=== PATIENT | male | born 1980 | race Caucasian/White ===

== ENCOUNTER 2023-08-29 00:49 | Inpatient (IN) | payer MEDICAID ==
[~2023-08-29] VITALS: Ht 182.9 cm; Wt 75.1 kg
[~2023-08-29 00:49] MED LIST: ACYC200C; BAC15O TP; CLIN-26 PO; INSU100V36; INSU100V9; SYRI1DIS90
[2023-08-29] MEDS ORDERED: dextrose 5%-normal saline 1,000 ML IV ONE (01:00)
[2023-08-29 01:18] LABS: BASOPHILS # (AUTO) 0.1 X10'3 (0-0.2); BASOPHILS % (AUTO) 0.7 % (0-1); EOSINOPHILS # (AUTO) 0.1 X10'3 (0-0.9); EOSINOPHILS % (AUTO) 1.3 % (0-6); HEMATOCRIT 40.9 % (42.0-52.0); HEMOGLOBIN 13.7 g/dl (14.0-17.9); LYMPHOCYTES % (AUTO) 20.1 % (21-51); MEAN CORPUSCULAR HEMOGLOBIN 29.3 PG (27.0-31.0); MEAN CORPUSCULAR HGB CONC 33.5 g/dL (33.0-36.5); MEAN CORPUSCULAR VOLUME 87.5 FL (78-98); MEAN PLATELET VOLUME 6.7 FL (7.4-10.4); MONOCYTES # (AUTO) 0.9 X10'3 (0-0.9); NEUTROPHILS # (AUTO) 6.8 X10'3 (1.8-7.7); NEUTROPHILS % (AUTO) 68.9 % (42-75); PLATELET COUNT 326 X10'3 (140-440); RED BLOOD COUNT 4.68 X10'6 (4.70-6.10); RED CELL DISTRIBUTION WIDTH 13.1 % (11.5-14.5); WHITE BLOOD COUNT 9.8 X10'3 (4.5-11.0)
[2023-08-29 01:26] LABS: ALANINE AMINOTRANSFERASE 30 U/L (12-78); ALBUMIN/GLOBULIN RATIO 1.3 (1.1-1.5); ALKALINE PHOSPHATASE 67 IU/L (46-116); ANION GAP 13 (8-16); ASPARTATE AMINO TRANSFERASE 35 U/L (10-37); BILIRUBIN,TOTAL 0.2 MG/DL (0.1-1.0); BLOOD UREA NITROGEN 20 MG/DL (7-18); BUN/CREATININE RATIO 13.2 (10.0-20.0); CHLORIDE 102 MMOL/L (99-107); CREATININE 1.51 MG/DL (0.60-1.10); GLUCOSE 160 MG/DL (70-104); POTASSIUM 4.2 MMOL/L (3.5-5.1); SODIUM 139 MMOL/L (135-145); TOTAL CARBON DIOXIDE 24.4 MMOL/L (24-32); eCRCL 68 ML/MIN; eGFR 51 ML/MIN
[2023-08-29] MEDS: dextrose 5%-normal saline 1,000 ML IV SCH ×4 (01:29→13:15)
[2023-08-29] MEDS ORDERED: diphenhydrAMINE 50 mg/ml inj IM ONE ×2 (01:30→04:35)
[2023-08-29] MEDS ORDERED: ringers solution, lacted 1,000 ML IV ONE (01:30)
[2023-08-29] MEDS ORDERED: haloperidol lactate 5mg/ml inj IM ONE ×2 (01:30→10:30)
[2023-08-29 01:36] LABS: ETHANOL < 10 MG/DL (<10); THYROID STIMULATING HORMONE 2.28 ulU/ml (0.34-4.50)
[2023-08-29 02:24] LABS: BILIRUBIN,URINE NEGATIVE (Neg); CLARITY,URINE SLIGHTLY CLOUDY (Clear); COLOR,URINE YELLOW (Yellow); GLUCOSE, URINE 100 mg/dl (Neg); KETONES,URINE TRACE mg/dl (Neg); LEUKOCYTE ESTERASE ,URINE NEGATIVE (Neg); NITRITES, URINE NEGATIVE (Neg); OCCULT BLOOD,URINE NEGATIVE (Neg); PROTEIN,URINE 30 mg/dl (Neg); UROBILINOGEN,URINE 0.2 E.U/dL (0.2-1.0)
[2023-08-29 02:29] LABS: UA COLLECTION TYPE CLN CATCH MIDSTREAM
[2023-08-29 02:30] LABS: CAL OXALATE CRYSTALS 4+ /HPF (NEGATIVE); MUCUS STRANDS FEW /LPF (Neg); SQUAMOUS EPITHELIAL CELL,UR FEW /LPF (FEW)
[2023-08-29 02:31] LABS: BACTERIA,URINE 1+ /HPF (Neg); RBC,URINE 0-2 /HPF (0-2); WBC,URINE 0-4 /HPF (0-4)
[2023-08-29] MEDS ORDERED: dextrose 5%-1/2 normal saline 1,000 ML IV SCH ×2 (02:40→04:10)
[2023-08-29 02:43] LABS: URINE AMPHETAMINE SCREEN POSITIVE (Neg); URINE BARBITUATE SCREEN NEGATIVE (Neg); URINE BENZODIAZEPINES SCREEN POSITIVE (Neg); URINE CANNABINOID SCREEN POSITIVE (Neg); URINE COCAINE SCREEN NEGATIVE (Neg); URINE METHADONE SCREEN NEGATIVE (Neg); URINE OPIATE SCREEN NEGATIVE (Neg); URINE PHENCYCLIDINE SCREEN NEGATIVE (Neg)
[2023-08-29] MEDS ORDERED: CefTRIAXone 2gm/D5W 50ml BAG 50 ML IV ONE (02:45)
[2023-08-29] MEDS ORDERED: vancomycin/NS 1 GM ADD-VANTAGE 250 ML IV ONE (02:50)
[2023-08-29] MEDS ORDERED: piperacillin/tazo 3.375gm/50ml 50 ML IV SCH (02:55)
[2023-08-29] MEDS ORDERED: diphenhydrAMINE 50 mg/ml inj IV PRN (04:10)
[2023-08-29] MEDS ORDERED: ipratropium/albuterol 3ml nebule NEB PRN (04:10)
[2023-08-29] MEDS ORDERED: normal saline 1000ml 1,000 ML IV SCH (04:10)
[2023-08-29] MEDS ORDERED: magnesium hydroxide 30ml (MOM) UD suspension PO PRN (04:10)
[2023-08-29] MEDS ORDERED: ondansetron/PF 4mg/2ml inj IV PRN (04:10)
[2023-08-29] MEDS ORDERED: morphine 2 MG/ML inj. syringe IV PRN (04:10)
[2023-08-29] MEDS ORDERED: HYDROcodone/acetaminophen 5mg/325mg tablet PO PRN (04:10)
[2023-08-29] MEDS ORDERED: ondansetron 4mg rapidly disintigrating tab PO PRN (04:10)
[2023-08-29] MEDS ORDERED: diphenhydrAMINE 25mg capsule PO PRN (04:10)
[2023-08-29] MEDS ORDERED: metoclopramide 5 mg/ml inj IV PRN (04:10)
[2023-08-29] MEDS ORDERED: bisacodyl 10mg suppository rectal RC PRN (04:10)
[2023-08-29] MEDS ORDERED: acetaminophen 325mg tablet PO PRN ×2 (04:10)
[2023-08-29] MEDS ORDERED: mag hydrox/Alum hydrox/simeth 30ml oral suspension PO PRN (04:10)
[2023-08-29] MEDS ORDERED: glucagon, human recombinant 1mg kit SUBCUT PRN ×2 (04:15→15:15)
[2023-08-29] MEDS ORDERED: insulin Lispro (HumaLOG) vial - multi-dose SQ SCH (04:15)
[2023-08-29] MEDS ORDERED: MESSAGE TO PHARMACY PO ONE ×2 (04:15)
[2023-08-29] MEDS ORDERED: dextrose 50%-water 50ml dispensing syringe IV PRN ×4 (04:15→15:15)
[2023-08-29] MEDS ORDERED: DEXTROSE 15 GM of carb/4 tabs (each vial/BOTTLE has 4 tablets) PO PRN ×4 (04:15→15:15)
[2023-08-29 04:34] LABS: APTT 24 SECONDS (22-32)
[2023-08-29 04:35] LABS: HEMOGLOBIN A1C 8.7 % (4.5-6.2)
[2023-08-29] MEDS ORDERED: ziprasidone IM 20mg inj **IM only IM ONE (04:35)
[2023-08-29 04:39] LABS: MAGNESIUM 2.3 MG/DL (1.5-2.4); PHOSPHORUS 4.8 MG/DL (2.3-4.5); PRO BRAIN NATRIURETIC PEPTIDE < 30 PG/ML (0-125)
[2023-08-29] MEDS ORDERED: INSU100I39 SQ (04:56)
[2023-08-29] MEDS ORDERED: INSU100I31 SQ (04:56)
[2023-08-29] MEDS ORDERED: SULF1TAB45 PO (04:56)
[2023-08-29] MEDS: normal saline 1000ml 1,000 ML IV SCH ×3 (04:59→23:13)
[2023-08-29 05:19] LABS: INR 0.9 INR
[2023-08-29 05:27] VITALS: PULSE 70; RESP 15; O2SAT 97
[2023-08-29 05:36] LABS: OSMOLALITY 304 MOSM/K (280-300)
[2023-08-29 05:46] LABS: CREATINE KINASE 599 U/L (39-308); LIPASE 17 U/L (16-77)
[2023-08-29] MEDS: levetiracetam inj 500 MG in normal saline 100ml IV soln 100 ML IV SCH ×2 (07:09→20:06)
[2023-08-29] MEDS: pantoprazole 40MG/NS 100ML BAG 100 ML IV SCH (07:33)
--- NOTE | 2023-08-29 07:48 | NUR ---
Patient was very agitated, restless, yelling at us. Called resident doctor Dr. Carreon, received order for Ativan 0.5 mg IV x 1
[2023-08-29] MEDS ORDERED: LORazepam 2 mg/ml vial IV ONE (07:50)
[2023-08-29] MEDS: piperacillin/tazo 3.375gm/50ml 50 ML IV SCH ×2 (07:52→15:22)
[2023-08-29] MEDS: nicotine 21mg patch - 24 hr TD SCH (08:00)
[2023-08-29] MEDS ORDERED: vancomycin/NS 1 GM ADD-VANTAGE 250 ML IV SCH (08:00)
[2023-08-29] MEDS ORDERED: docusate sod 100mg capsule PO SCH (08:00)
[2023-08-29] MEDS: heparin, porcine 5000 units/ml vial SQ SCH ×2 (08:07→20:07)
--- NOTE | 2023-08-29 08:47 | NUR ---
still very agitated even with 0.5 mg IV Ativan given earlier
[2023-08-29] MEDS: LORazepam 2 mg/ml vial IV PRN ×2 (08:53→15:19)
[2023-08-29] MEDS ORDERED: haloperidol decanoate***LONG-ACTING*** 100mg/ml **IM only** inj. IM ONE (10:10)
--- NOTE | 2023-08-29 10:32 | NUR ---
Dr. Carreon (resident doctor) ordered Haloperidol 100 mg IM which I felt too much dose for this patient as this was not the normal dose of Haloperidol. I called pharmacist about this too and he was not very sure. ER doctor Dr. Coy was consulted on this, he gave me verbal order to change the order to Haloperidol 10 mg IM instead
[2023-08-29 10:33] LABS: CREATINE KINASE 1890 U/L (39-308)
--- NOTE | 2023-08-29 11:08 | NUR ---
Pt agitated and restless, gave 10 mg haldol per Olf's orded
[2023-08-29] MEDS ORDERED: haloperidol 5mg tablet PO PRN (12:25)
[2023-08-29] MEDS ORDERED: haloperidol lactate 5mg/ml inj IM PRN (12:25)
--- NOTE | 2023-08-29 14:30 | NUR ---
Patient remains disoriented, agitated on and off, not following command. Patient vey uncooperative. Unable to offer solid food or anything PO due to risk for aspiration. Patient has IVF running for hydration
--- NOTE | 2023-08-29 15:10 | NUR ---
Per resident doctor Dr. Carreon, we should keep the NS @ 100 ml/hr ordered and d/c the D5 NS ordered so we can keep the patient hydrated. I was advised to keep NS and treat hypoglycemia if needed
[2023-08-29] MEDS ORDERED: VANCOMYCIN LEVEL IV ONE (15:30)
--- NOTE | 2023-08-29 17:21 | NUR ---
Pt's blood sugar 60, gave 50% dextrose 25mL per protocol. Pt agitated, incoherent.
[2023-08-29] MEDS: vancomycin/NS 1 GM ADD-VANTAGE 250 ML IV SCH (17:31)
--- NOTE | 2023-08-29 17:44 | NUR ---
BS after 15 mins 87-per protocol will not administer dextrose
--- NOTE | 2023-08-29 18:12 | NUR ---
removed bilat lower restraints to allow pt to turn on side. Will reevaluate for increased agitation.
[2023-08-29] MEDS ORDERED: temazepam 15mg capsule PO PRN (21:00)
[2023-08-29] MEDS: dextrose 5%-1/2 normal saline 1,000 ML IV SCH (21:18)
--- NOTE | 2023-08-29 22:35 | NUR ---
pt placed on hospital bed for comfort. wrist restaints released, trialing to determine if restraints can be DC'd. pt is resting comfortably on side, NAD observed, RR even & unlabored, VSS.
[2023-08-30] MEDS: piperacillin/tazo 3.375gm/50ml 50 ML IV SCH ×3 (00:02→16:00)
--- NOTE | 2023-08-30 00:17 | NUR ---
pt remains out of restraints at this time. resting comfortably, RR even & unlabored, VSS, NAD observed.
--- NOTE | 2023-08-30 02:42 | NUR ---
pt remains out of restraints at this time. resting comfortably, RR even & unlabored, VSS, NAD observed.
--- NOTE | 2023-08-30 03:15 | NUR ---
pt sat up & attempted to climb out of bed, was able to be redirected by this RN and laid back down in bed. pt let this RN take BG and rewrap coban on IV sites. pt now resting comfortably, NAD observed, RR even & unlabored.
[2023-08-30 04:25] VITALS: PULSE 88; RESP 18; O2SAT 98
[2023-08-30] MEDS: vancomycin/NS 1 GM ADD-VANTAGE 250 ML IV SCH ×2 (04:36→16:59)
[2023-08-30] MEDS: dextrose 5%-1/2 normal saline 1,000 ML IV SCH (07:05)
[2023-08-30] MEDS: normal saline 1000ml 1,000 ML IV SCH ×3 (07:15→19:23)
[2023-08-30 07:41] LABS: BASOPHILS # (AUTO) 0.1 X10'3 (0-0.2); EOSINOPHILS # (AUTO) 0.2 X10'3 (0-0.9); HEMATOCRIT 43.6 % (42.0-52.0); HEMOGLOBIN 14.5 g/dl (14.0-17.9); LYMPHOCYTES % (AUTO) 27.1 % (21-51); MEAN CORPUSCULAR HEMOGLOBIN 29.1 PG (27.0-31.0); MEAN CORPUSCULAR HGB CONC 33.3 g/dL (33.0-36.5); MEAN CORPUSCULAR VOLUME 87.5 FL (78-98); MEAN PLATELET VOLUME 6.9 FL (7.4-10.4); MONOCYTES # (AUTO) 0.5 X10'3 (0-0.9); MONOCYTES % (AUTO) 7.2 % (2-12); NEUTROPHILS # (AUTO) 4.5 X10'3 (1.8-7.7); NEUTROPHILS % (AUTO) 61.7 % (42-75); PLATELET COUNT 294 X10'3 (140-440); RED BLOOD COUNT 4.99 X10'6 (4.70-6.10); RED CELL DISTRIBUTION WIDTH 13.2 % (11.5-14.5); WHITE BLOOD COUNT 7.3 X10'3 (4.5-11.0)
[2023-08-30 08:07] LABS: ALANINE AMINOTRANSFERASE 39 U/L (12-78); ALBUMIN 3.5 G/DL (3.4-5.0); ALBUMIN/GLOBULIN RATIO 1.1 (1.1-1.5); ALKALINE PHOSPHATASE 65 IU/L (46-116); ANION GAP 7 (8-16); ASPARTATE AMINO TRANSFERASE 68 U/L (10-37); BILIRUBIN,TOTAL 0.4 MG/DL (0.1-1.0); BLOOD UREA NITROGEN 8 MG/DL (7-18); BUN/CREATININE RATIO 7.4 (10.0-20.0); CALCIUM 8.5 MG/DL (8.5-10.1); CHLORIDE 105 MMOL/L (99-107); CHOL/HDL RATIO 3.9 (0.00-4.99); CHOLESTEROL 183 MG/DL (0-200); CREATININE 1.08 MG/DL (0.60-1.10); GLUCOSE 74 MG/DL (70-104); HDL CHOLESTEROL 47 MG/DL (35-60); LDL CHOLESTEROL 115 MG/DL (50-100); POTASSIUM 3.6 MMOL/L (3.5-5.1); SODIUM 140 MMOL/L (135-145); TOTAL CARBON DIOXIDE 28.5 MMOL/L (24-32); TOTAL PROTEIN 6.6 G/DL (6.4-8.2); TRIGLYCERIDES 90 MG/DL (20-135); eCRCL 95 ML/MIN; eGFR 75 ML/MIN
[2023-08-30 08:16] LABS: CREATINE KINASE 1422 U/L (39-308)
[2023-08-30] MEDS: levetiracetam inj 500 MG in normal saline 100ml IV soln 100 ML IV SCH ×2 (08:55→21:15)
[2023-08-30] MEDS: nicotine 21mg patch - 24 hr TD SCH (09:14)
[2023-08-30] MEDS: heparin, porcine 5000 units/ml vial SQ SCH ×2 (09:26→19:34)
[2023-08-30] MEDS: pantoprazole 40MG/NS 100ML BAG 100 ML IV SCH (09:26)
[2023-08-30] MEDS ORDERED: VANCOMYCIN LEVEL IV ONE (15:30)
--- NOTE | 2023-08-30 18:09 | NUR ---
CALLED PCU TO GIVE REPORT. RECEIVING NURSE UNABLE TO TAKE REPORT AT THIS TIME.
--- NOTE | 2023-08-30 18:40 | NUR ---
Received report from ER nurse. Patient to follow shortly.
--- NOTE | 2023-08-30 19:00 | NUR ---
Patient arrived to floor from Er via hospital bed. Alert and oriented , but fatigued. VS initiated.
[2023-08-30 19:10] VITALS: BP 136/75; PULSE 81; RESP 16; TEMP 98.4; O2SAT 98
[2023-08-30 19:15] VITALS: RESP 16; O2SAT 98
[2023-08-30 22:00] VITALS: BP 144/79; PULSE 83; RESP 18; TEMP 98.1; O2SAT 91
[2023-08-31] MEDS: piperacillin/tazo 3.375gm/50ml 50 ML IV SCH ×2 (00:15→10:05)
[2023-08-31] MEDS: normal saline 1000ml 1,000 ML IV SCH (04:32)
[2023-08-31] MEDS: vancomycin/NS 1 GM ADD-VANTAGE 250 ML IV SCH (04:33)
--- NOTE | 2023-08-31 06:30 | NUR ---
Problems reprioritized. Patient report given, questions answered & plan of care reviewed with Karen DICKINSON and nursing coordinator Brisa.
--- NOTE | 2023-08-31 06:34 | NUR ---
Patient in room PCU 3015B. I have received report from TEENA Lee and had the opportunity to ask questions and assume patient care.
[2023-08-31 07:00] VITALS: BP 107/59; PULSE 58; RESP 19; TEMP 97.6; O2SAT 100
[2023-08-31 08:00] VITALS: RESP 16; O2SAT 100
[2023-08-31] MEDS: nicotine 21mg patch - 24 hr TD SCH (08:00)
[2023-08-31] MEDS: pantoprazole 40MG/NS 100ML BAG 100 ML IV SCH (08:02)
[2023-08-31] MEDS: levetiracetam inj 500 MG in normal saline 100ml IV soln 100 ML IV SCH (08:02)
[2023-08-31] MEDS: heparin, porcine 5000 units/ml vial SQ SCH (08:03)
[2023-08-31 09:12] LABS: BASOPHILS # (AUTO) 0.1 X10'3 (0-0.2); EOSINOPHILS # (AUTO) 0.1 X10'3 (0-0.9); EOSINOPHILS % (AUTO) 2.3 % (0-6); HEMATOCRIT 39.2 % (42.0-52.0); HEMOGLOBIN 13.4 g/dl (14.0-17.9); LYMPHOCYTES # (AUTO) 1.6 X10'3 (1.1-4.8); LYMPHOCYTES % (AUTO) 23.9 % (21-51); MEAN CORPUSCULAR HEMOGLOBIN 29.6 PG (27.0-31.0); MEAN CORPUSCULAR HGB CONC 34.2 g/dL (33.0-36.5); MEAN CORPUSCULAR VOLUME 86.5 FL (78-98); MONOCYTES # (AUTO) 0.7 X10'3 (0-0.9); NEUTROPHILS # (AUTO) 4.1 X10'3 (1.8-7.7); NEUTROPHILS % (AUTO) 62.8 % (42-75); PLATELET COUNT 279 X10'3 (140-440); RED BLOOD COUNT 4.53 X10'6 (4.70-6.10); RED CELL DISTRIBUTION WIDTH 12.9 % (11.5-14.5); WHITE BLOOD COUNT 6.6 X10'3 (4.5-11.0)
[2023-08-31 09:46] LABS: ALANINE AMINOTRANSFERASE 31 U/L (12-78); ALBUMIN 3.1 G/DL (3.4-5.0); ALKALINE PHOSPHATASE 70 IU/L (46-116); ANION GAP 6 (8-16); ASPARTATE AMINO TRANSFERASE 42 U/L (10-37); BILIRUBIN,TOTAL 0.4 MG/DL (0.1-1.0); BLOOD UREA NITROGEN 8 MG/DL (7-18); BUN/CREATININE RATIO 7.7 (10.0-20.0); CALCIUM 8.4 MG/DL (8.5-10.1); CHLORIDE 101 MMOL/L (99-107); CREATININE 1.04 MG/DL (0.60-1.10); GLUCOSE 223 MG/DL (70-104); POTASSIUM 4.4 MMOL/L (3.5-5.1); SODIUM 135 MMOL/L (135-145); TOTAL CARBON DIOXIDE 28.2 MMOL/L (24-32); TOTAL PROTEIN 6.2 G/DL (6.4-8.2); eCRCL 98 ML/MIN; eGFR 78 ML/MIN
--- NOTE | 2023-08-31 10:31 | NUR ---
Received order for consult. Met with patient in regards to substance use and to see if patient was interested in resources for treatment options. Patient is interested in outpatient resources. I discussed with patient about medication to help with cravings. I gave patient a list of resources, a card for [facility] and my card to call me with any questions.
--- NOTE | 2023-08-31 11:49 | NUR ---
PATIENT LEFT AMA, DR ROGERS, IV, TELE AND [employer]COS[employer] CATHETER REMOVED, PATIENT TOO AGITATED FOR EDUCATION ON BENEFITS AND RISK OF LEAVING VS STAYING FOR TREATMENT, CHARGE NOTIFIED, ALL BELONGINGS SENT WITH PATIENT, PATIENT WALKED OUT ON OWN TO LOBBY WHERE FAMILY WILL TAKE PATIENT HOME
--- NOTE | 2023-08-31 15:15 | NUR ---
Student documentation: I have reviewed and agree with all interventions, assessments performed and documented by YUMIKO DEAL.
[2023-08-31] MEDS ORDERED: VANCOMYCIN 1,500MG in normal saline IV soln 300 ML IV SCH (16:00)
[2023-09-02] MEDS ORDERED: VANCOMYCIN LEVEL IV ONE (03:30)
== END 2023-08-31 11:49 | disposition left against medical advice (07) | DRG 812 ==
LOC: ER 00:50 → ED HOLD 04:15 → EDBEDREQ 06:52 → PCU 3S 08-30 19:00
PROVIDERS: ADMIT Family Medicine; ATTEND Internal Medicine
DX: T50.901A Poisoning by unspecified drugs, medicaments and biological substances, accidental (unintentional), initial encounter (principal); E10.649 Type 1 diabetes mellitus with hypoglycemia without coma; N17.9 Acute kidney failure, unspecified; E10.22 Type 1 diabetes mellitus with diabetic chronic kidney disease; R56.9 Unspecified convulsions; I95.9 Hypotension, unspecified; E10.65 Type 1 diabetes mellitus with hyperglycemia; E86.1 Hypovolemia; E87.6 Hypokalemia; F11.129 Opioid abuse with intoxication, unspecified; F12.129 Cannabis abuse with intoxication, unspecified; R82.4 Acetonuria; F15.129 Other stimulant abuse with intoxication, unspecified; X58.XXXA Exposure to other specified factors, initial encounter; N18.9 Chronic kidney disease, unspecified; Z79.4 Long term (current) use of insulin; Z53.29 Procedure and treatment not carried out because of patient's decision for other reasons; Z86.14 Personal history of Methicillin resistant Staphylococcus aureus infection; Z87.891 Personal history of nicotine dependence; Z91.199 Patient's noncompliance with other medical treatment and regimen due to unspecified reason
CPT/HCPCS: 36415; 70450; 71045; 80053; 80061; 80202; 80305; 80320; 81001; 82550; 82948; 83036; 83605; 83690; 83735; 83880; 83930; 84100; 84145; 84443; 84484; 85025; 85379; 85610; 85651; 85730; 87040; 87081; 94760; 96365; 96367; 99285; C1758; C9113; G0378; J1200; J1630; J1644; J1953; J2060; J2543; J3370; J3486; J3490; J7030; J7042; J7120

== ENCOUNTER 2023-12-19 01:46 | Emergency (ER) | payer MEDICAID ==
[~2023-12-19] VITALS: Ht 180.3 cm; Wt 72.7 kg
[~2023-12-19 01:46] MED LIST changes: -ACYC200C; -BAC15O TP; -CLIN-26 PO; +INSU100I31 SQ; +INSU100I39 SQ; -INSU100V36; -INSU100V9; +SULF1TAB45 PO; -SYRI1DIS90
[2023-12-19 01:56] VITALS: BP 124/80; PULSE 85; RESP 16; TEMP 98; O2SAT 95
[2023-12-19] MEDS ORDERED: LANTUS SUBCUT (01:58)
== END 2023-12-19 02:04 | disposition home or self-care (01) ==
LOC: ER 01:46
DX: E11.9 Type 2 diabetes mellitus without complications (principal); Z76.0 Encounter for issue of repeat prescription; F15.90 Other stimulant use, unspecified, uncomplicated; F12.90 Cannabis use, unspecified, uncomplicated; Z56.0 Unemployment, unspecified; Z79.899 Other long term (current) drug therapy
CPT/HCPCS: 99281

== ENCOUNTER 2024-03-19 16:08 | Emergency (ER) | payer MEDICAID ==
[~2024-03-19] VITALS: Ht 180.3 cm; Wt 77.9 kg
[2024-03-19 16:55] VITALS: BP 123/85; PULSE 87; RESP 16; TEMP 98.6; O2SAT 98
[2024-03-19] MEDS: bacitracin 15gm ointment TP ONE (16:55)
== END 2024-03-19 16:56 | disposition home or self-care (01) ==
LOC: ER 16:08
DX: S60.511A Abrasion of right hand, initial encounter (principal); M25.522 Pain in left elbow; E11.9 Type 2 diabetes mellitus without complications; F15.90 Other stimulant use, unspecified, uncomplicated; F12.90 Cannabis use, unspecified, uncomplicated; W18.30XA Fall on same level, unspecified, initial encounter; Y93.01 Activity, walking, marching and hiking; Y92.410 Unspecified street and highway as the place of occurrence of the external cause; Y99.8 Other external cause status; Z79.4 Long term (current) use of insulin
CPT/HCPCS: 99284

== ENCOUNTER 2024-03-22 08:04 | Emergency (ER) | payer MEDICAID ==
[~2024-03-22] VITALS: Ht 180.3 cm; Wt 78.8 kg
[2024-03-22 08:18] VITALS: BP 127/62; PULSE 75; RESP 18; O2SAT 98
[2024-03-22] MEDS ORDERED: INSU100I31 SUBCUT (11:32)
[2024-03-22] MEDS ORDERED: [UNRECOGNIZED DRUG - CODE] (11:32)
[2024-03-22] MEDS ORDERED: BLOO-1084 METER (11:32)
[2024-03-22 12:09] VITALS: TEMP 97.8
== END 2024-03-22 12:13 | disposition home or self-care (01) ==
LOC: ER 08:05
DX: E11.9 Type 2 diabetes mellitus without complications (principal); Z76.0 Encounter for issue of repeat prescription; F12.90 Cannabis use, unspecified, uncomplicated; F15.90 Other stimulant use, unspecified, uncomplicated
CPT/HCPCS: 99281

== ENCOUNTER 2024-04-01 17:32 | Emergency (ER) | payer MEDICAID ==
[~2024-04-01] VITALS: Ht 175.3 cm; Wt 78.2 kg
[~2024-04-01 17:32] MED LIST changes: +BLOO-1084 METER; +INSU100I31 SUBCUT; +[UNRECOGNIZED DRUG - CODE]
[2024-04-01 17:42] VITALS: BP 129/75; PULSE 82; RESP 16; TEMP 98; O2SAT 98
[2024-04-01] MEDS ORDERED: CLIN-97 PO (18:18)
[2024-04-01] MEDS: clindamycin 150mg capsule PO ONE (18:38)
== END 2024-04-01 18:42 | disposition home or self-care (01) ==
LOC: ER 17:33
DX: K08.89 Other specified disorders of teeth and supporting structures (principal); K00.7 Teething syndrome; Z79.899 Other long term (current) drug therapy; Z79.4 Long term (current) use of insulin; E11.9 Type 2 diabetes mellitus without complications; F15.90 Other stimulant use, unspecified, uncomplicated; F12.90 Cannabis use, unspecified, uncomplicated; Z56.0 Unemployment, unspecified
CPT/HCPCS: 99283

== ENCOUNTER 2024-04-03 11:35 | Emergency (ER) | payer MEDICAID ==
[~2024-04-03] VITALS: Ht 175.3 cm; Wt 78.2 kg
[~2024-04-03 11:35] MED LIST changes: +CLIN-97 PO
[2024-04-03 11:49] VITALS: BP 126/83; PULSE 70; RESP 16; TEMP 98.8; O2SAT 97
[2024-04-03] MEDS ORDERED: DOXY-1 PO (13:01)
== END 2024-04-03 13:16 | disposition home or self-care (01) ==
LOC: ER 11:36
DX: K04.7 Periapical abscess without sinus (principal); E11.9 Type 2 diabetes mellitus without complications; F12.90 Cannabis use, unspecified, uncomplicated; F15.90 Other stimulant use, unspecified, uncomplicated; Z79.899 Other long term (current) drug therapy; Z79.4 Long term (current) use of insulin; Z79.2 Long term (current) use of antibiotics
CPT/HCPCS: 99283

== ENCOUNTER 2024-07-05 17:45 | Emergency (ER) | payer MEDICAID ==
[~2024-07-05] VITALS: Ht 170.2 cm; Wt 77.0 kg
[2024-07-05 17:47] VITALS: BP 117/68; PULSE 70; RESP 16; TEMP 97.9; O2SAT 98
== END 2024-07-05 21:14 | disposition left against medical advice (07) ==
LOC: ER 17:46
DX: S61.401A Unspecified open wound of right hand, initial encounter (principal); E11.9 Type 2 diabetes mellitus without complications; X58.XXXA Exposure to other specified factors, initial encounter; Y93.89 Activity, other specified; Y92.89 Other specified places as the place of occurrence of the external cause; Y99.8 Other external cause status
CPT/HCPCS: 82948

== ENCOUNTER 2024-07-10 18:03 | Emergency (ER) | payer MEDICAID ==
[~2024-07-10] VITALS: Ht 170.2 cm; Wt 73.0 kg
[2024-07-10 19:50] VITALS: BP 114/64; PULSE 86; RESP 18; TEMP 98.6; O2SAT 98
== END 2024-07-10 19:52 | disposition home or self-care (01) ==
LOC: ER 18:05
DX: S62.625A Displaced fracture of middle phalanx of left ring finger, initial encounter for closed fracture (principal); E10.9 Type 1 diabetes mellitus without complications; F12.90 Cannabis use, unspecified, uncomplicated; F15.90 Other stimulant use, unspecified, uncomplicated; Z79.2 Long term (current) use of antibiotics; Z79.4 Long term (current) use of insulin; W19.XXXA Unspecified fall, initial encounter; Y93.89 Activity, other specified; Y92.89 Other specified places as the place of occurrence of the external cause; Y99.8 Other external cause status
CPT/HCPCS: 29125; 73130; 82948; 99283; A6449